=== PATIENT | male | born 1985 | race Two or more races ===

== ENCOUNTER 2021-08-22 17:44 | Emergency (ER) | payer OTHER ==
[~2021-08-22] VITALS: Ht 185.4 cm; Wt 89.7 kg
--- NOTE | 2021-08-22 18:43 | PHYS DOC ---
Adult General Chief Complaint Chief Complaint: LACERATION/AVULSION HPI HPI Patient is a 35-year-old male who presents with a superficial fingertip laceration, states that he was making dinner just before coming in and cut the very tip of his finger with a steak knife. Denies any other injuries. States niraj taylor is not up-to-date on his tetanus Review of Systems Review of Systems Review of systems otherwise unremarkable except noted in HPI Physical Exam Physical Exam Constitutional: Well developed, well nourished, no acute distress, non-toxic appearance. [] HENT: Normocephalic, Extremities: No tenderness, no cyanosis, no clubbing, ROM intact, no edema. [] Neurologic: Alert and oriented X 3, normal motor function, normal sensory function, no focal deficits noted. [] Psychologic: Affect normal, judgement normal, mood normal. [] EKG EKG [] Radiology/Procedures Radiology/Procedures [] Heart Score C/O Chest Pain: No Risk Factors: Risk Factors: DM, Current or recent (<one month) smoker, HTN, HLP, family history of CAD, obesity. Risk Scores: Risk Factors: DM, Current or recent (<one month) smoker, HTN, HLP, family history of CAD, obesity. Course & Med Decision Making Course & Med Decision Making Patient is a 35-year-old male who presents with a superficial fingertip laceration Vital signs not concerning. Physical exam noted above. Updated tetanus. Cleaned, bandaged. No need for Dermabond or suture repair. Gave wound care instructions. Advised to follow-up with primary care physician. Gave return precautions to the ED. Patient grateful, verbalized understanding and agreed with plan of discharge. [] Dragon Disclaimer Dragon Disclaimer This electronic medical record was generated, in whole or in part, using a voice recognition dictation system. Departure Departure: Impression: Primary Impression: Laceration of finger Disposition: 01 HOME / SELF CARE / HOMELESS Condition: GOOD Referrals: PCP,UNKNOWN (PCP) JESUS BROTHERS MD Patient Instructions: Wound Care, [id number] Additional Instructions: Thank for coming into the emergency department tonight and allowing us to take care of you. Please read the attached information carefully to go back over things we discussed. Please keep the area clean, dry and bandaged as we discussed. Please follow-up with your primary care physician to set up a follow-up as needed for wound reevaluation. Please come back to the ED with new or concerning symptoms as discussed. ISRAEL MCCLELLAND MD Aug 22, 2021 18:43
[2021-08-22 18:54] VITALS: BP 152/86
[2021-08-22] MEDS ORDERED: DIPH,PERTUSS(ACELL),TET VAC/PF 0.5 ML SYRINGE. VAX IM ONE (19:00)
== END 2021-08-22 19:21 | disposition home or self-care (01) ==
LOC: ER 17:44
DX: S61.215A Laceration without foreign body of left ring finger without damage to nail, initial encounter (principal); W26.0XXA Contact with knife, initial encounter; Y93.89 Activity, other specified; Y92.89 Other specified places as the place of occurrence of the external cause; Y99.8 Other external cause status
CPT/HCPCS: 90471; 90715; 99283-25